=== PATIENT | male | born 1985 | race Caucasian/White ===

== ENCOUNTER 2017-07-28 17:42 | Emergency (ER) | payer OTHER ==
[2017-07-28 17:46] VITALS: TEMP 98
[2017-07-28 18:59] LABS: Amphetamine Screen,Urine Not Detected (NotDetected); Barbiturate Screen,Urine Not Detected (NotDetected); Benzodiazepines Screen,Urine Not Detected (NotDetected); Cocaine Screen,Urine Not Detected (NotDetected); Methadone Screen, Urine Not Detected (NotDetected); Opiate Screen,Urine Not Detected (NotDetected); Oxycodone Screen, Urine Not Detected (NotDetected); Phencyclidine Screen,Urine Not Detected (NotDetected); Tricyclic Antidepressant,Urine Not Detected (NotDetected); Urn Cannabinoid Scrn Not Detected (NotDetected)
--- NOTE | 2017-07-28 19:23 | ED ---
General Adult HPI - General Source: patient, RN notes reviewed Mode of arrival: ambulatory Limitations: no limitations <Jerzy Bernstein - Last Filed: 07/28/17 19:16> <Ghassan Hansen - Last Filed: 07/29/17 02:21> - General Chief complaint: Psychiatric Symptoms Stated complaint: Mental Health Time Seen by Provider: 07/28/17 17:55 - History of Present Illness Initial comments: 32-year-old male presents with alcohol intoxication, and suicidal ideation. Patient's past with alcoholism for some time. He has been admitted for psychiatric reasons in the past. He states he has been feeling suicidal. His father brought him to the emergency department and will not speak with him secondary to his alcoholism. He does admit to drinking heavily today. He denies any specific suicidal plan. Denies any other ingestion besides alcohol. He has no physical complaints. (Jerzy Bernstein) - Related Data Home Medications Medication Instructions Recorded Confirmed ALPRAZolam [Xanax] 0.25 mg PO TID PRN 07/28/17 07/28/17 Ergocalciferol (Vitamin D2) 50,000 unit PO Q30D 07/28/17 07/28/17 [Vitamin D2] QUEtiapine [SEROquel] 25 mg PO HS 07/28/17 07/28/17 Allergies Allergy/AdvReac Type Severity Reaction Status Date / Time No Known Allergies Allergy Verified 07/28/17 19:03 Review of Systems ROS Other: All systems not noted in ROS Statement are negative. <Jerzy Bernstein - Last Filed: 07/28/17 19:16> ROS Other: All systems not noted in ROS Statement are negative. <Ghassan Hansen - Last Filed: 07/29/17 02:21> ROS Statement: Those systems with pertinent positive or pertinent negative responses have been documented in the HPI. Past Medical History Past Medical History: Hypertension Additional Past Medical History / Comment(s): alcoholism History of Any Multi-Drug Resistant Organisms: None Reported Past Surgical History: No Surgical Hx Reported Past Anesthesia/Blood Transfusion Reactions: Unable to Obtain Additional Past Anesthesia/Blood Transfusion Reaction / Comment(s): never had surgery Past Psychological History: Anxiety, Depression Smoking Status: Current every day smoker Past Alcohol Use History: Abuse, Daily, Heavy Past Drug Use History: None Reported - Past Family History Father Family Medical History: No Reported History Additional Family Medical History / Comment(s): pt unsure of med hx of parents Mother Family Medical History: No Reported History <FideodinJerzy Sowmya - Last Filed: 07/28/17 19:16> General Exam Limitations: no limitations General appearance: alert, in no apparent distress, appears intoxicated Head exam: Present: atraumatic, normocephalic Eye exam: Present: normal appearance. Absent: PERRL, EOMI ENT exam: Present: normal exam Neck exam: Present: normal inspection. Absent: tenderness, meningismus Respiratory exam: Present: normal lung sounds bilaterally. Absent: respiratory distress, wheezes Cardiovascular Exam: Present: regular rate, normal rhythm GI/Abdominal exam: Present: soft. Absent: distended, tenderness Extremities exam: Present: normal inspection, normal capillary refill. Absent: pedal edema, joint swelling Neurological exam: Present: alert, oriented X3, CN II-XII intact. Absent: motor sensory deficit Psychiatric exam: Present: normal affect, normal mood Skin exam: Present: warm, dry, intact. Absent: cyanosis, diaphoretic <FideodinJerzy N - Last Filed: 07/28/17 19:16> Vital Signs 07/28/17 17:44 Temperature 98.0 F Pulse Rate 104 H Respiratory 20 Rate Blood Pressure 168/106 O2 Sat by Pulse 98 Oximetry - Lab Data Lab Results 07/28/17 Range/Units 18:31 Urine Opiates Screen Not Detected (NotDetected) Ur Oxycodone Screen Not Detected (NotDetected) Urine Methadone Screen Not Detected (NotDetected) Ur Propoxyphene Screen Not Detected (NotDetected) Ur Barbiturates Screen Not Detected (NotDetected) U Tricyclic Antidepress Not Detected (NotDetected) Ur Phencyclidine Scrn Not Detected (NotDetected) Ur Amphetamines Screen Not Detected (NotDetected) U Methamphetamines Scrn Not Detected (NotDetected) U Benzodiazepines Scrn Not Detected (NotDetected) Urine Cocaine Screen Not Detected (NotDetected) U Marijuana (THC) Screen Not Detected (NotDetected) Disposition <Jerzy Bernstein - Last Filed: 07/28/17 19:16> Is patient prescribed a controlled substance at d/c from ED?: No Time of Disposition: 02:20 <Ghassan Hansen - Last Filed: 07/29/17 02:21> Clinical Impression: Alcohol intoxication Disposition: HOME SELF-CARE Condition: Good Instructions: Alcohol Intoxication (ED) Referrals: Sebastian Bone MD [Primary Care Provider] - 1-2 days
[2017-07-29] MEDS ORDERED: LORazepam 1 MG TAB PO STA (02:21)
[2017-07-29 02:36] VITALS: BP 142/90; PULSE 90; RESP 16
== END 2017-07-29 02:36 | disposition home or self-care (01) ==
LOC: EC 17:42
DX: F10.129 Alcohol abuse with intoxication, unspecified (principal); R45.851 Suicidal ideations; F32.9 Major depressive disorder, single episode, unspecified; F41.9 Anxiety disorder, unspecified; F17.200 Nicotine dependence, unspecified, uncomplicated; Z79.899 Other long term (current) drug therapy
CPT/HCPCS: 80306; 82075; 99284

== ENCOUNTER 2021-09-26 11:37 | Emergency (ER) | payer OTHER ==
[2021-09-26 11:47] VITALS: BP 150/91; PULSE 130; RESP 18; TEMP 98.1
[2021-09-26] MEDS ORDERED: SODIUM CHLORIDE 0.9% 1,000 ML IV ONE (12:53)
--- NOTE | 2021-09-26 13:15 | ED ---
General Adult HPI - General Chief complaint: Psychiatric Symptoms Stated complaint: mental health Time Seen by Provider: 09/26/21 12:06 Source: patient, RN notes reviewed, old records reviewed Mode of arrival: ambulatory Limitations: no limitations - History of Present Illness Initial comments: 36-year-old male presents with alcohol intoxication, and complaint of alcohol abuse. He has stated that he's been dealing with some depression. He denies suicidal thoughts or suicidal plan. He is accompanied by his mother who is quite concerned about his drinking. Patient has previous history of alcoholism and does admit to both alcohol and illicit drugs. - Related Data Home Medications Medication Instructions Recorded Confirmed ALPRAZolam [Xanax] 0.25 mg PO TID PRN 07/28/17 07/28/17 Ergocalciferol (Vitamin D2) 50,000 unit PO Q30D 07/28/17 07/28/17 [Vitamin D2] QUEtiapine [SEROquel] 25 mg PO HS 07/28/17 07/28/17 Previous Rx's Medication Instructions Recorded diazePAM [Valium] 5 mg PO TID PRN 3 Days #9 tab 09/26/21 Allergies Allergy/AdvReac Type Severity Reaction Status Date / Time No Known Allergies Allergy Verified 09/26/21 11:47 Review of Systems ROS Statement: Those systems with pertinent positive or pertinent negative responses have been documented in the HPI. ROS Other: All systems not noted in ROS Statement are negative. Past Medical History Past Medical History: Hypertension Additional Past Medical History / Comment(s): alcoholism History of Any Multi-Drug Resistant Organisms: None Reported Past Surgical History: No Surgical Hx Reported Past Anesthesia/Blood Transfusion Reactions: Unable to Obtain Additional Past Anesthesia/Blood Transfusion Reaction / Comment(s): never had surgery Past Psychological History: Anxiety, Depression Smoking Status: Current every day smoker Past Alcohol Use History: Abuse, Daily, Heavy Past Drug Use History: None Reported - Past Family History Father Family Medical History: No Reported History Additional Family Medical History / Comment(s): pt unsure of med hx of parents Mother Family Medical History: No Reported History General Exam Limitations: no limitations General appearance: alert, in no apparent distress, appears intoxicated Head exam: Present: atraumatic, normocephalic Eye exam: Present: normal appearance, PERRL ENT exam: Present: mucous membranes dry Respiratory exam: Present: normal lung sounds bilaterally. Absent: respiratory distress, wheezes Cardiovascular Exam: Present: normal rhythm, tachycardia GI/Abdominal exam: Present: soft. Absent: distended Extremities exam: Present: normal inspection, normal capillary refill. Absent: pedal edema Neurological exam: Present: alert, oriented X3, CN II-XII intact. Absent: motor sensory deficit Psychiatric exam: Present: depressed. Absent: suicidal ideation Skin exam: Present: warm, dry, intact. Absent: cyanosis, diaphoretic Course Vital Signs 09/26/21 11:43 Temperature 98.1 F Pulse Rate 130 H Respiratory 18 Rate Blood Pressure 150/91 O2 Sat by Pulse 93 L Oximetry Medical Decision Making - Medical Decision Making 36-year-old male with alcohol intoxication. Patient does admit to depression but is not currently suicidal. He is accompanied by his mother. He allows me to obtain laboratory testing and this is essentially unremarkable with exception of a high alcohol of 300. The patient does not want to stay in the emergency department. He is alert and able to make his own decisions currently and is accompanied by his mother. He is not suicidal. Of course the patient is welcome to return with any worsening or changing symptoms. I did offer information on rehabilitation the patient declines. He will accept a prescription for benzodiazepines to prevent withdrawal. - Lab Data Result diagrams: 09/26/21 13:05 09/26/21 13:05 Lab Results 09/26/21 09/26/21 09/26/21 Range/Units 13:05 13:05 13:05 WBC 3.6 L (3.8-10.6) k/uL RBC 5.04 (4.30-5.90) m/uL Hgb 15.9 (13.0-17.5) gm/dL Hct 46.6 (39.0-53.0) % MCV 92.5 (80.0-100.0) fL MCH 31.6 (25.0-35.0) pg MCHC 34.2 (31.0-37.0) g/dL RDW 14.1 (11.5-15.5) % Plt Count 263 (150-450) k/uL MPV 6.5 Neutrophils % 56 % Lymphocytes % 29 % Monocytes % 11 % Eosinophils % 0 % Basophils % 0 % Neutrophils # 2.0 (1.3-7.7) k/uL Lymphocytes # 1.1 (1.0-4.8) k/uL Monocytes # 0.4 (0-1.0) k/uL Eosinophils # 0.0 (0-0.7) k/uL Basophils # 0.0 (0-0.2) k/uL Sodium 139 (137-145) mmol/L Potassium 3.8 (3.5-5.1) mmol/L Chloride 98 (98-107) mmol/L Carbon Dioxide 26 (22-30) mmol/L Anion Gap 15 mmol/L BUN 9 (9-20) mg/dL Creatinine 0.84 (0.66-1.25) mg/dL Est GFR (CKD-EPI)AfAm >90 (>60 ml/min/1.73 sqM) Est GFR (CKD-EPI)NonAf >90 (>60 ml/min/1.73 sqM) Glucose 111 H (74-99) mg/dL Calcium 8.4 (8.4-10.2) mg/dL Magnesium 2.0 (1.6-2.3) mg/dL Total Bilirubin 0.5 (0.2-1.3) mg/dL AST 46 (17-59) U/L ALT 37 (4-49) U/L Alkaline Phosphatase 93 (38-126) U/L Total Protein 8.1 (6.3-8.2) g/dL Albumin 4.9 (3.5-5.0) g/dL Urine Color Colorless Urine Appearance Clear (Clear) Urine pH 5.5 (5.0-8.0) Ur Specific [place] 1.002 (1.001-1.035) Urine Protein Negative (Negative) Urine Glucose (UA) Negative (Negative) Urine Ketones Negative (Negative) Urine Blood Negative (Negative) Urine Nitrite Negative (Negative) Urine Bilirubin Negative (Negative) Urine Urobilinogen <2.0 (<2.0) mg/dL Ur Leukocyte Esterase Negative (Negative) Urine Opiates Screen Not Detected (NotDetected) Ur Oxycodone Screen Not Detected (NotDetected) Urine Methadone Screen Not Detected (NotDetected) Ur Propoxyphene Screen Not Detected (NotDetected) Ur Barbiturates Screen Not Detected (NotDetected) U Tricyclic Antidepress Not Detected (NotDetected) Ur Phencyclidine Scrn Not Detected (NotDetected) Ur Amphetamines Screen Not Detected (NotDetected) U Methamphetamines Scrn Not Detected (NotDetected) U Benzodiazepines Scrn Not Detected (NotDetected) Urine Cocaine Screen Not Detected (NotDetected) U Marijuana (THC) Screen Not Detected (NotDetected) Serum Alcohol 313 H* mg/dL Disposition Clinical Impression: Depression, Alcohol intoxication Disposition: HOME SELF-CARE Condition: Fair Instructions (If sedation given, give patient instructions): Alcohol Intoxication (ED) Prescriptions: diazePAM [Valium] 5 mg PO TID PRN 3 Days #9 tab PRN Reason: Alcohol Withdrawal Is patient prescribed a controlled substance at d/c from ED?: No Referrals: Nonstaff,Physician [Primary Care Provider] - 1-2 days Time of Disposition: 13:54
[2021-09-26 13:18] LABS: Appearance,Urine Clear (Clear); Bilirubin,Urine Negative (Negative); Blood,Urine Negative (Negative); Color,Urine Colorless; Glucose,Urine (UA) Negative (Negative); Ketones,Urine Negative (Negative); Leukocyte Esterase,Urine Negative (Negative); Nitrite,Urine Negative (Negative); PH, Urine 5.5 (5.0-8.0); Protein,Urine Negative (Negative); Specific Gravity,Urine 1.002 (1.001-1.035); Urobilinogen,Urine <2.0 mg/dL (<2.0)
[2021-09-26 13:31] LABS: Amphetamine Screen,Urine Not Detected (NotDetected); Barbiturate Screen,Urine Not Detected (NotDetected); Benzodiazepines Screen,Urine Not Detected (NotDetected); Cocaine Screen,Urine Not Detected (NotDetected); Methadone Screen, Urine Not Detected (NotDetected); Opiate Screen,Urine Not Detected (NotDetected); Oxycodone Screen, Urine Not Detected (NotDetected); Phencyclidine Screen,Urine Not Detected (NotDetected); Tricyclic Antidepressant,Urine Not Detected (NotDetected); Urn Cannabinoid Scrn Not Detected (NotDetected)
[2021-09-26 13:33] LABS: ALT 37 U/L (4-49); AST 46 U/L (17-59); African American GFR (CKD) >90 (>60 ml/min/1.73 sqM); Albumin 4.9 g/dL (3.5-5.0); Alkaline Phosphatase 93 U/L (38-126); Anion Gap 15 mmol/L; Blood Urea Nitrogen 9 mg/dL (9-20); Calcium 8.4 mg/dL (8.4-10.2); Carbon Dioxide 26 mmol/L (22-30); Chloride 98 mmol/L (98-107); Glucose 111 mg/dL (74-99); Non-African American GFR(CKD) >90 (>60 ml/min/1.73 sqM); Potassium 3.8 mmol/L (3.5-5.1); Sodium 139 mmol/L (137-145); Total Bilirubin 0.5 mg/dL (0.2-1.3); Total Protein 8.1 g/dL (6.3-8.2)
[2021-09-26 13:46] LABS: Alcohol 313 mg/dL
[2021-09-26 13:49] LABS: Basophils % (A) 0 %; Eosinophils % (A) 0 %; HCT 46.6 % (39.0-53.0); HGB 15.9 gm/dL (13.0-17.5); Lymphocytes # (A) 1.1 k/uL (1.0-4.8); Lymphocytes % (A) 29 %; MCH 31.6 pg (25.0-35.0); MCHC 34.2 g/dL (31.0-37.0); MCV 92.5 fL (80.0-100.0); Mean Platelet Volume 6.5; Monocytes # (A) 0.4 k/uL (0-1.0); Monocytes % (A) 11 %; Neutrophils % (A) 56 %; Platelet Count 263 k/uL (150-450); RBC 5.04 m/uL (4.30-5.90); RDW 14.1 % (11.5-15.5); WBC 3.6 k/uL (3.8-10.6)
== END 2021-09-26 14:00 | disposition home or self-care (01) ==
LOC: EC 11:37
DX: F10.129 Alcohol abuse with intoxication, unspecified (principal); F32.A Depression, unspecified; I10 Essential (primary) hypertension; F17.200 Nicotine dependence, unspecified, uncomplicated
CPT/HCPCS: 82075; 36415; 80053; 83735; 85025; 81003; 80306; 99284; G0480; 80320